=== PATIENT | female | born 1970 | race Caucasian/White ===

== ENCOUNTER 2018-11-02 10:05 | Day surgery (SDC) | payer OTHER ==
[~2018-11-02] VITALS: Ht 157.5 cm; Wt 45.0 kg
[2018-11-02 10:57] VITALS: Ht 157.5 cm; Wt 45.0 kg
[2018-11-02] MEDS ORDERED: letrozole (11:07)
[2018-11-02 11:32] VITALS: BP_SYST 150; BP_SYST 151; BP_DIAS 71; BP_DIAS 75; PULSE 78; RESP 16; RESP 18
[2018-11-02] MEDS ORDERED: FENTAnyl 50 MCG/ML VIAL ONE (12:19)
[2018-11-02] MEDS ORDERED: MIDAZOLAM 1 MG/ML 2 ML INJ ONE ×3 (12:19)
[2018-11-02 12:43] VITALS: BP 118/56; RESP 26
== END 2018-11-02 17:33 | disposition home or self-care (01) ==
LOC: GIL 10:05
PROVIDERS: ATTEND Internal Medicine Gastroenterology
DX: Z12.11 Encounter for screening for malignant neoplasm of colon (principal); K64.8 Other hemorrhoids
CPT/HCPCS: 45378; J2250; J3010; Z7610